=== PATIENT | female | born 1990 | race Caucasian/White ===

== ENCOUNTER 2019-10-21 22:17 | Emergency (ER) | payer MEDICAID ==
[~2019-10-21] VITALS: Ht 165.1 cm; Wt 99.8 kg
[~2019-10-21 22:17] MED LIST: ACETAMINOPHEN-1 EAC1 PO; ALBUTEROL INHAL17 GM IH; AMOXICILLIN500 M1 PO; BIRTH CONTROL MED; CIPROFLOXACIN500 M1 PO; LORTAB 5 MG/5001 TAB PO; METFORMIN HCL1000 M1 PO; PREDNISONE 20 M20 MG PO; PREDNISONE50 MG PO; ZPAK PO
[2019-10-21 22:42] LABS: HEMATOCRIT 40.2 % (37.0-47.0); HEMOGLOBIN 13.5 gm/dL (12.0-15.0); MCH 27.8 pg (26.0-34.0); MCHC 33.6 g/dL (28.0-37.0); MCV 82.9 fL (80.0-100.0); MPV 8.6 fl. (7.2-11.1); NUCLEATED RBCS 0 /100WBC; PLATELET COUNT* 247 thou/uL (150-400); RBC 4.85 mil/uL (4.20-5.00); RDW-CV 13.7 % (10.5-14.5); WBC 10.5 thou/uL (4.0-11.0)
[2019-10-21 22:50] LABS: CALCIUM 8.9 mg/dL (8.5-10.1); POTASSIUM 3.7 mmol/L (3.5-5.1)
[2019-10-21 23:00] LABS: ALBUMIN 3.5 g/dL (3.4-5.0); MAGNESIUM 1.6 mg/dL (1.8-2.4); TOTAL BILIRUBIN 0.1 mg/dL (<0.1-1.0); TOTAL PROTEIN 7.3 g/dL (6.4-8.2)
[2019-10-21 23:23] LABS: ABSOLUTE BASOPHILS 0.1 thou/uL (0.0-0.2); ABSOLUTE EOSINOPHILS 0.5 thou/uL (0.0-0.7); ABSOLUTE MONOCYTES 0.8 thou/uL (0.0-1.2); ANISOCYTOSIS Occasional; CLUMPED PLTS FEW; HYPOCHROMASIA Occasional; PLATELET ESTIMATE ADEQUATE; TOXIC GRANULATION 1+
[2019-10-21] MEDS ORDERED: NORCO 5-325 TA1 EAC1 PO (23:48)
[2019-10-22 00:04] VITALS: BP 129/49
--- NOTE | 2019-10-22 08:51 | EKG ---
[place] [address] ELECTROCARDIOGRAM REPORT Name: NONA ARELLANO Room: [facility]#: [id number] Admission: 10/21/19 Attend Phys: Discharge: 10/22/19 Date of : 89 Report #: [id number] THIS REPORT FOR: //name// [facility] ED Test Date: 2019-10-21 Test Time: 22:20:00 Pat Name: NONA ARELLANO Department: Room: Gender: F Business Development Professional: ANTHONY : 1990 Requested By: Olman Hinkle Order Number: [id number] MD: Kris Gonzalez Measurements Intervals [place] Rate: 90 P: -17 OK: 144 QRS: 43 QRSD: 86 T: 1 QT: 310 QTc: 380 Interpretive Statements Sinus rhythm Borderline T abnormalities, inferior leads Compared to ECG 02/23/2011 17:21:24 T-wave abnormality now present Electronically Signed On 10-22-2019 8:51:22 [employer] COMPLIANCE REPRESENTATIVE by Kris Gonzalez [email or web address] <ELECTRONICALLY SIGNED> By: Kris Gonzalez MD, [facility] 10/22/19 0851 19 19 Kris Gonzalez MD, FACC /EPI
== END 2019-10-22 00:06 | disposition home or self-care (01) ==
LOC: M.ERS 22:17
PROVIDERS: Emergency Medicine Emergency Medical Services
DX: R07.89 Other chest pain (principal); R09.1 Pleurisy; G89.29 Other chronic pain; E11.9 Type 2 diabetes mellitus without complications; Z98.890 Other specified postprocedural states

== ENCOUNTER 2020-09-21 12:20 | Emergency (ER) | payer MEDICAID ==
[~2020-09-21] VITALS: Ht 165.1 cm; Wt 97.5 kg
[~2020-09-21 12:20] MED LIST changes: +NORCO 5-325 TA1 EAC1 PO
[2020-09-21] MEDS ORDERED: BUTALB-APAP-CA1 EACH PO (13:47)
[2020-09-21 13:50] VITALS: BP 115/73
== END 2020-09-21 13:50 | disposition home or self-care (01) ==
LOC: M.ERS 12:20
DX: G43.909 Migraine, unspecified, not intractable, without status migrainosus (principal); Z20.828 Contact with and (suspected) exposure to other viral communicable diseases; E11.9 Type 2 diabetes mellitus without complications; F17.210 Nicotine dependence, cigarettes, uncomplicated; Z98.890 Other specified postprocedural states

== ENCOUNTER → 2020-09-25 | Outpatient (CLI) | payer OTHER ==
[~2020-09-25] MED LIST changes: +BUTALB-APAP-CA1 EACH PO
[2020-09-25 10:46] LABS: ABSOLUTE BASOPHILS 0.1 thou/uL (0.0-0.2); ABSOLUTE EOSINOPHILS 0.3 thou/uL (0.0-0.7); ABSOLUTE LYMPHOCYTES 4.4 thou/uL (0.8-5.3); ABSOLUTE NEUTROPHILS 10.6 thou/uL (1.6-8.1); BASOPHILS 0.6 %; EOSINOPHILS 1.8 %; HEMATOCRIT 42.2 % (37.0-47.0); HEMOGLOBIN 13.8 gm/dL (12.0-15.0); MCH 27.5 pg (26.0-34.0); MCHC 32.6 g/dL (28.0-37.0); MCV 84.2 fL (80.0-100.0); MONOCYTES 6.1 %; MPV 7.9 fl. (7.2-11.1); NUCLEATED RBCS 0 /100WBC; PLATELET COUNT* 316 thou/uL (150-400); POLYS 64.5 %; RBC 5.01 mil/uL (4.20-5.00); RDW-CV 12.9 % (10.5-14.5); WBC 16.4 thou/uL (4.0-11.0)
[2020-09-25 11:02] LABS: ALBUMIN 3.5 g/dL (3.4-5.0); ALKALINE PHOSPHATASE 80 U/L (46-116); ANION GAP 9 mmol/L (7-16); BUN 13 mg/dL (7-18); CALCIUM 9.4 mg/dL (8.5-10.1); CHLORIDE 101 mmol/L (98-107); CHOLESTEROL 303 mg/dL (<200); CO2 25 mmol/L (21-32); CREATININE 0.7 mg/dL (0.6-1.3); GLUCOSE 185 mg/dL (70-99); HDL CHOLESTEROL 30 mg/dL (>40); LDL CHOLESTEROL > 400 mg/dL (<100); POTASSIUM 4.3 mmol/L (3.5-5.1); SGOT 12 U/L (15-37); SGPT 49 U/L (30-65); SODIUM 135 mmol/L (136-145); TC:HDL 10.1 Ratio (Not establshd); TOTAL BILIRUBIN 0.1 mg/dL (<0.1-1.0); TOTAL PROTEIN 7.3 g/dL (6.4-8.2); TRIGLYCERIDE 522 mg/dL (<150); VLDL 104 mg/dL (<40)
[2020-09-25 11:22] LABS: SERUM ASSESSMENT Clear
[2020-09-26 02:06] LABS: GLYCOHEMOGLOBIN (HGB A1C) 9.1 % (4.8-5.6)
== END ==
LOC: M.LAB 09:52
PROVIDERS: ATTEND Family Medicine
DX: E03.9 Hypothyroidism, unspecified (principal); R73.9 Hyperglycemia, unspecified

== ENCOUNTER 2020-12-29 12:36 | Emergency (ER) | payer OTHER ==
[~2020-12-29] VITALS: Ht 165.1 cm; Wt 86.2 kg
[2020-12-29] MEDS ORDERED: ADIPEX-P37.5 MG PO (12:48)
[2020-12-29] MEDS ORDERED: GLUCOPHAGE1000 MG PO (12:48)
[2020-12-29] MEDS ORDERED: TOPAMAX100 MG PO (12:48)
[2020-12-29] MEDS ORDERED: FLEXERIL PO (13:53)
[2020-12-29] MEDS ORDERED: HYDROCODON-ACE1 EAC7 PO (13:53)
[2020-12-29 14:03] VITALS: BP 135/90
== END 2020-12-29 14:03 | disposition home or self-care (01) ==
LOC: M.ERS 12:36
DX: S29.012A Strain of muscle and tendon of back wall of thorax, initial encounter (principal); E11.9 Type 2 diabetes mellitus without complications; F17.210 Nicotine dependence, cigarettes, uncomplicated; Z98.890 Other specified postprocedural states; Z79.899 Other long term (current) drug therapy; X50.1XXA Overexertion from prolonged static or awkward postures, initial encounter; Y93.89 Activity, other specified; Y92.89 Other specified places as the place of occurrence of the external cause; Y99.8 Other external cause status

== ENCOUNTER → 2021-09-08 | Outpatient (CLI) | payer OTHER ==
[~2021-09-08] MED LIST changes: +ADIPEX-P37.5 MG PO; +FLEXERIL PO; +GLUCOPHAGE1000 MG PO; +HYDROCODON-ACE1 EAC7 PO; +TOPAMAX100 MG PO
[2021-09-08 13:31] LABS: ABSOLUTE BASOPHILS 0.1 thou/uL (0.0-0.2); ABSOLUTE EOSINOPHILS 0.2 thou/uL (0.0-0.7); ABSOLUTE LYMPHOCYTES 3.4 thou/uL (0.8-5.3); ABSOLUTE MONOCYTES 0.7 thou/uL (0.0-1.2); ABSOLUTE NEUTROPHILS 8.3 thou/uL (1.6-8.1); BASOPHILS 0.5 %; EOSINOPHILS 1.8 %; HEMATOCRIT 42.9 % (37.0-47.0); HEMOGLOBIN 14.1 gm/dL (12.0-15.0); LYMPHOCYTES 26.6 %; MCH 27.5 pg (26.0-34.0); MCHC 32.9 g/dL (28.0-37.0); MCV 83.8 fL (80.0-100.0); MONOCYTES 5.5 %; MPV 8.1 fl. (7.2-11.1); NUCLEATED RBCS 0 /100WBC; PLATELET COUNT* 309 thou/uL (150-400); POLYS 65.6 %; RBC 5.13 mil/uL (4.20-5.00); RDW-CV 12.8 % (10.5-14.5); WBC 12.6 thou/uL (4.0-11.0)
[2021-09-08 13:44] LABS: ALBUMIN 3.6 g/dL (3.4-5.0); ALKALINE PHOSPHATASE 81 U/L (46-116); ANION GAP 10 mmol/L (7-16); BUN 13 mg/dL (7-18); CALCIUM 8.9 mg/dL (8.5-10.1); CHLORIDE 102 mmol/L (98-107); CHOLESTEROL 292 mg/dL (<200); CO2 27 mmol/L (21-32); CREATININE 0.6 mg/dL (0.6-1.3); GLUCOSE 144 mg/dL (70-99); HDL CHOLESTEROL 37 mg/dL (>40); LDL CHOLESTEROL 195 mg/dL (<100); POTASSIUM 4.3 mmol/L (3.5-5.1); SERUM ASSESSMENT Clear; SGOT 15 U/L (15-37); SGPT 36 U/L (30-65); SODIUM 139 mmol/L (136-145); TC:HDL 7.9 Ratio (Not establshd); TOTAL BILIRUBIN 0.3 mg/dL (<0.1-1.0); TOTAL PROTEIN 7.6 g/dL (6.4-8.2); TRIGLYCERIDE 303 mg/dL (<150); VLDL 61 mg/dL (<40)
== END ==
LOC: M.LAB 12:57
PROVIDERS: ATTEND Family Medicine
DX: E11.9 Type 2 diabetes mellitus without complications (principal); E78.5 Hyperlipidemia, unspecified

== ENCOUNTER 2021-09-24 08:44 | Emergency (ER) | payer OTHER ==
[~2021-09-24] VITALS: Ht 165.1 cm; Wt 88.5 kg
[2021-09-24 09:22] LABS: URINE BILIRUBIN NEGATIVE (Negative); URINE BLOOD 1+ (Negative); URINE CLARITY CLEAR; URINE COLOR YELLOW; URINE GLUCOSE-RANDOM NEGATIVE (Negative); URINE KETONES NEGATIVE (Negative); URINE LEUKOCYTES NEGATIVE (Negative); URINE NITRITE NEGATIVE (Negative); URINE PROTEIN NEGATIVE (Negative); URINE SPECIFIC GRAVITY >= 1.030 (1.005-1.030); URINE UROBILINOGEN 0.2 E.U./dl (0.2-1.0)
[2021-09-24] MEDS ORDERED: TRULICITY0.75 MG/0. SQ (09:23)
[2021-09-24 09:39] LABS: SQUAMOUS 0-3 Few /LPF (0-3)
[2021-09-24 09:40] LABS: BACTERIA 1-9 Few /HPF (None Seen); CASTS None Seen /LPF (None Seen); CRYSTALS None Seen /LPF (None Seen); MUCUS None Seen strn/LPF (None Seen); URINE RBC None Seen /HPF (0-2); URINE WBC None Seen /HPF (0-5)
[2021-09-24 09:41] LABS: ABSOLUTE BASOPHILS 0.1 thou/uL (0.0-0.2); ABSOLUTE EOSINOPHILS 0.3 thou/uL (0.0-0.7); ABSOLUTE LYMPHOCYTES 3.4 thou/uL (0.8-5.3); ABSOLUTE MONOCYTES 0.7 thou/uL (0.0-1.2); ABSOLUTE NEUTROPHILS 6.1 thou/uL (1.6-8.1); BASOPHILS 1.2 %; EOSINOPHILS 2.9 %; HEMATOCRIT 42.2 % (37.0-47.0); HEMOGLOBIN 13.8 gm/dL (12.0-15.0); LYMPHOCYTES 31.8 %; MCH 27.2 pg (26.0-34.0); MCHC 32.7 g/dL (28.0-37.0); MCV 83.1 fL (80.0-100.0); MONOCYTES 6.3 %; MPV 7.6 fl. (7.2-11.1); NUCLEATED RBCS 0 /100WBC; PLATELET COUNT* 322 thou/uL (150-400); POLYS 57.8 %; RBC 5.07 mil/uL (4.20-5.00); WBC 10.6 thou/uL (4.0-11.0)
[2021-09-24 09:49] LABS: CALCIUM 9.4 mg/dL (8.5-10.1); CREATININE 0.5 mg/dL (0.6-1.3); POTASSIUM 4.3 mmol/L (3.5-5.1)
[2021-09-24] MEDS ORDERED: IBUPROFEN 800800 MG PO (11:05)
[2021-09-24] MEDS ORDERED: DIAZEPAM 5 MG5 M1 PO (11:05)
[2021-09-24] MEDS ORDERED: NORCO5 PO (11:05)
[2021-09-24 11:51] VITALS: BP 104/44
== END 2021-09-24 11:53 | disposition home or self-care (01) ==
LOC: M.ERS 08:44
PROVIDERS: Emergency Medicine
DX: M54.50 Low back pain, unspecified (principal); G89.29 Other chronic pain; E11.9 Type 2 diabetes mellitus without complications; Z98.890 Other specified postprocedural states

== ENCOUNTER → 2021-10-02 | Outpatient (CLI) | payer OTHER ==
[~2021-10-02] MED LIST changes: +DIAZEPAM 5 MG5 M1 PO; +IBUPROFEN 800800 MG PO; +NORCO5 PO; +TRULICITY0.75 MG/0. SQ
== END ==
LOC: M.MRI 09-25 12:50
PROVIDERS: ATTEND Family Medicine
DX: M47.816 Spondylosis without myelopathy or radiculopathy, lumbar region (principal); Q05.9 Spina bifida, unspecified; Z82.69 Family history of other diseases of the musculoskeletal system and connective tissue

== ENCOUNTER → 2021-10-29 | Outpatient (CLI) | payer OTHER ==
[~2021-10-29] MED LIST changes: +AMITRIPTYLINE H10 M1 PO; +MEDROLDOSEPACK PO; +MELOXICAM15 MG PO
== END ==
LOC: M.PC 08:28
PROVIDERS: ATTEND Anesthesiology Pain Medicine
DX: G89.29 Other chronic pain (principal); M54.50 Low back pain, unspecified; E28.2 Polycystic ovarian syndrome; E11.9 Type 2 diabetes mellitus without complications; Z79.84 Long term (current) use of oral hypoglycemic drugs; Z79.899 Other long term (current) drug therapy; F17.200 Nicotine dependence, unspecified, uncomplicated